=== PATIENT | male | born 2000 | race African-American/Black ===

== ENCOUNTER 2020-05-29 07:59 | Emergency (ER) | payer OTHER ==
[2020-05-29] MEDS ORDERED: ONDANSETRON 4 MG TAB.RAPDIS PO ONE (09:31)
[2020-05-29] MEDS ORDERED: ACETAMINOPHEN 325 MG TABLET PO ONE (09:31)
[2020-05-29] MEDS ORDERED: NAPROXEN 250 MG TABLET PO ONE (09:32)
--- NOTE | 2020-05-29 10:20 | ER Document Report ---
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 He reports x1 episode of emesis last night, but denies any recent episodes. He denies cough, sore throat, loss of smell, or any known COVID exposure. 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 denies: Throat pain Cardiovascular: No symptoms reported Respiratory: See HPI. denies: Cough Gastrointestinal: See HPI, Nausea, Vomiting Genitourinary: No symptoms reported Male Genitourinary: No symptoms reported Musculoskeletal: See HPI, Muscle pain Skin: No symptoms reported Hematologic/Lymphatic: No symptoms reported Neurological/Psychological: See HPI, Headaches -: Yes All other systems reviewed and negative Physical Exam - Vital signs Vitals: Temp Pulse Resp BP Pulse Ox 100.1 F 90 16 145/68 H 98 05/29/20 08:17 05/29/20 08:17 05/29/20 08:17 05/29/20 08:17 05/29/20 08:17 - General General appearance: Alert In distress: None - HEENT Head: Normocephalic, Atraumatic Eyes: Normal Pupils: PERRL Pharynx: Normal Neck: Other - Posterior cervical musculature tenderness to palpation - Respiratory Respiratory status: No respiratory distress Chest status: Nontender Breath sounds: Normal Chest palpation: Normal - Cardiovascular Rhythm: Regular Heart sounds: Normal auscultation Murmur: No Friction rub: No Gallop: None auscultated - Abdominal Inspection: Normal Distension: No distension Bowel sounds: Normal Tenderness: Nontender - Abdomen soft Organomegaly: No organomegaly - Back Back: Normal, Nontender - Extremities General upper extremity: Normal inspection General lower extremity: Normal inspection - Neurological Neuro grossly intact: Yes - Psychological Associated symptoms: Normal affect, Normal mood - Skin Skin Temperature: Warm Skin Moisture: Dry Skin Color: Normal Course - Re-evaluation Re-evalutation: 05/29/20 11:25 The patient was evaluated during the global COVID-19 pandemic and that diagnosis was suspected/considered upon their initial presentation. Their evaluation, treatment and testing was consistent with current guidelines for patients who present with complaints or symptoms that may be related to COVID-19. Patient feels much better after the Zofran, Tylenol and Naprosyn. Nauseousness is gone and headache is gone. - Vital Signs Vital signs: Temp Pulse Resp BP Pulse Ox 100.1 F 90 16 145/68 H 98 05/29/20 08:17 05/29/20 08:17 05/29/20 08:17 05/29/20 08:17 05/29/20 08:17 Discharge - Discharge Clinical Impression: Viral syndrome, Encounter for laboratory testing for COVID-19 virus Fever Qualifiers: Fever type: unspecified Qualified Code(s): R50.9 - Fever, unspecified Nausea & vomiting Qualifiers: Vomiting type: unspecified Vomiting Intractability: non-intractable Qualified Code(s): R11.2 - Nausea with vomiting, unspecified Headache Qualifiers: Headache type: tension-type Headache chronicity pattern: unspecified pattern Intractability: not intractable Qualified Code(s): G44.209 - Tension-type headache, unspecified, not intractable Condition: Stable Disposition: HOME, SELF-CARE Instructions: COVID-19 Guidance for Persons Under Investigation Additional Instructions: Viral Syndrome The physician has diagnosed a viral infection. Viruses not only cause "colds," but can cause many different symptoms including generalized aching, fever, headache, cough, diarrhea, nausea, vomiting, and fatigue. The treatment, for the most part, is simply relief of symptoms. This means that antibiotics are usually not given. Rest, fluids, pain medications and, occasionally, medication for the specific symptoms that are most bothersome will be prescribed. Use good handwashing to avoid passing the virus to others. Shared toys should be cleaned with disinfectant. Clean the toilets, sinks, and counter surfaces in bathrooms. Launder clothing in hot water. Contact the physician if you develop any new or unusual symptoms such as severe headache, stiff neck, high fever, chest pain, productive cough, or shortness of breath. You should be rechecked if you don't see marked improvemen t within seven to 10 days. Take the Zofran as prescribed for nausea if needed. Take Tylenol and Aleve for headache and fever as needed. Drink plenty of fluids and get plenty of rest. Self isolate until you get the results of the COVID test. RETURN TO THE EMERGENCY ROOM IF ANY NEW OR WORSENING SYMPTOMS. Prescriptions: Ondansetron [Zofran Odt 4 mg Tablet] 1 - 2 tab PO Q4H PRN #14 tab.rapdis PRN Reason: I personally performed the services described in the documentation, reviewed and edited the documentation which was dictated to the scribe in my presence, and it accurately records my words and actions.
[2020-05-29 10:51] LABS: APPEARANCE,URINE CLEAR; BILIRUBIN,URINE NEGATIVE (NEGATIVE); COLOR,URINE YELLOW; GLUCOSE, URINE NEGATIVE (NEGATIVE); KETONES,URINE NEGATIVE (NEGATIVE); LEUKOCYTE ESTERASE,URINE NEGATIVE (NEGATIVE); NITRITE,URINE NEGATIVE (NEGATIVE); PROTEIN,URINE NEGATIVE (NEGATIVE); URINE SPECIFIC GRAVITY 1.015; UROBILINOGEN,URINE NEGATIVE mg/dL (<2.0)
[2020-05-29 11:48] VITALS: BP 131/66
== END 2020-05-29 11:36 | disposition home or self-care (01) ==
LOC: ER 07:59
DX: G44.209 Tension-type headache, unspecified, not intractable (principal); B34.9 Viral infection, unspecified; R11.2 Nausea with vomiting, unspecified; R50.9 Fever, unspecified; Z20.828 Contact with and (suspected) exposure to other viral communicable diseases
CPT/HCPCS: 99283; 87635; 81001; S0119; C9803

== ENCOUNTER 2020-08-07 23:50 | Emergency (ER) | payer OTHER ==
--- NOTE | 2020-08-08 01:02 | ER Document Report ---
ED Psych Disorder / Suicide - General Mode of Arrival: Wheelchair Information source: Friend TRAVEL OUTSIDE OF THE [place] IN LAST 30 DAYS: No <NGUYEN HAINES JR - Last Filed: 08/08/20 01:33> <RA TREJO - Last Filed: 08/08/20 15:48> <JENN TOBAR - Last Filed: 08/08/20 15:51> - General Chief Complaint: Overdose Stated Complaint: POSSIBLE OVERDOSE Time Seen by Provider: 08/08/20 00:57 Primary Care Provider: ELSA OMER [NO LOCAL MD] - Follow up as needed Notes: 20-year-old black male arrives by POV with his friend Adam who is trackless trolley driver patient called him to alert him that he had taken 3 oxycodone 7 ibuprofen 2 lithium tablets several Tylenol tablets extra strength over the last 2 days in a suicide attempt. Patient very lethargic at this time but does know who he is and where he is at. Patient denies any prior history of overdose or suicidal ideation. (NGUYEN HAINES JR) - Related Data Allergies/Adverse Reactions: No Known Allergies Allergy (Unverified 05/29/20 09:43) Past Medical History - General Information source: Patient, Friend - Social History Smoking Status: Unknown if Ever Smoked Cigarette use (# per day): No Chew tobacco use (# tins/day): No Smoking Education Provided: No Frequency of alcohol use: Occasional Drug Abuse: Prescription drugs Family History: Reviewed & Not Pertinent Patient has suicidal ideation: No Patient has homicidal ideation: No <NGUYEN HAINES JR - Last Filed: 08/08/20 01:33> Review of Systems - Review of Systems Constitutional: See HPI, Weakness EENT: No symptoms reported Cardiovascular: No symptoms reported Respiratory: No symptoms reported Gastrointestinal: No symptoms reported Genitourinary: No symptoms reported Male Genitourinary: No symptoms reported Musculoskeletal: No symptoms reported Skin: No symptoms reported Hematologic/Lymphatic: No symptoms reported Neurological/Psychological: See HPI, Confusion, Weakness, Suicidal ideation <NGUYEN HAINES JR - Last Filed: 08/08/20 01:33> Physical Exam - Vital signs Interpretation: Normal - General General appearance: Appears well, Alert - HEENT Head: Normocephalic, Atraumatic Eyes: Normal Pupils: PERRL - Respiratory Respiratory status: No respiratory distress Chest status: Nontender Breath sounds: Normal Chest palpation: Normal - Cardiovascular Rhythm: Regular Heart sounds: Normal auscultation Murmur: No - Abdominal Inspection: Normal Distension: No distension Bowel sounds: Normal Tenderness: Nontender Organomegaly: No organomegaly - Rectal Prostate: Other - Deferred - Genitourinary Scrotum: Other - deferred - Back Back: Normal, Nontender - Extremities General upper extremity: Normal inspection, Nontender, Normal color, Normal ROM, Normal temperature General lower extremity: Normal inspection, Nontender, Normal color, Normal ROM, Normal temperature, Normal weight bearing. No: Abraham's sign - Neurological Neuro grossly intact: Yes Cognition: Normal Orientation: AAOx4 [place] Coma Scale Eye Opening: Spontaneous [place] Coma Scale Verbal: Oriented [place] Coma Scale Motor: Obeys Commands [place] Coma Scale Total: 15 Speech: Normal Motor strength normal: LUE, RUE, LLE, RLE Sensory: Normal - Psychological Associated symptoms: Flat affect - Skin Skin Temperature: Warm Skin Moisture: Dry Skin Color: Normal <NGUYEN HAINES JR - Last Filed: 08/08/20 01:33> - Vital signs Vitals: Resp Pulse Ox 17 100 08/08/20 00:45 08/08/20 00:45 Course - Laboratory Result Diagrams: 08/08/20 00:20 08/08/20 00:20 - EKG Interpretation by Me EKG shows normal: Sinus rhythm Rate: Normal Rhythm: NSR - [address] elevation no ST depression no T wave elevation no T wave depression and this EKG was read by myself and I agree with the EKG interpretation as well. <NGUYEN HAINES JR - Last Filed: 08/08/20 01:33> - Laboratory Result Diagrams: 08/08/20 00:20 08/08/20 00:20 <RA TREJO - Last Filed: 08/08/20 15:48> - Laboratory Result Diagrams: 08/08/20 00:20 08/08/20 00:20 <JENN TOBAR - Last Filed: 08/08/20 15:51> - Vital Signs Vital signs: Temp Pulse Resp BP Pulse Ox 98 F 14 113/60 100 08/08/20 12:53 08/08/20 15:01 08/08/20 15:01 08/08/20 15:01 - Laboratory Laboratory results interpreted by me: 08/08/20 08/08/20 08/08/20 00:20 00:20 00:20 Lymph % (Auto) 11.0 L Absolute Neuts (auto) 8.5 H Seg Neutrophils % 80.7 H Carbonic Acid ABG pCO2 ABG HCO3 ABG Total CO2 Glucose 113 H Urine Protein Urine Ketones Urine Urobilinogen Salicylates < 1.0 L Acetaminophen < 10 L [place] < 0.2 L 08/08/20 08/08/20 01:15 01:40 Lymph % (Auto) Absolute Neuts (auto) Seg Neutrophils % Carbonic Acid 1.38 H ABG pCO2 45.9 H ABG HCO3 26.3 H ABG Total CO2 27.7 H Glucose Urine Protein 100 H Urine Ketones TRACE H Urine Urobilinogen 4.0 H Salicylates Acetaminophen [place] Discharge <NGUYEN HAINES JR - Last Filed: 08/08/20 01:33> <RA TREJO - Last Filed: 08/08/20 15:48> <JENN TOBAR - Last Filed: 08/08/20 15:51> - Discharge Clinical Impression: Overdose Qualifiers: Encounter type: initial encounter Injury intent: intentional self-harm Qualified Code(s): T50.902A - Poisoning by unspecified drugs, medicaments and biological substances, intentional self-harm, initial encounter Suicidal overdose Qualifiers: Encounter type: initial encounter Qualified Code(s): T50.902A - Poisoning by unspecified drugs, medicaments and biological substances, intentional self-harm, initial encounter Condition: Fair Disposition: HOME, SELF-CARE Additional Instructions: You have been evaluated by both medical and behavioral health teams for suicidal ideations and overdose. You have been deemed appropriate for discharge. While in the emergency department you received the following services/or had access to: Medical screening and assessment, nursing services, dietary services, pharmacological services, one-on-one counseling and/or psychotherapy, environmental services, and continuous observation by a patient campus safety officer. You should are currently not involved in medication management. Suicidal Ideation Suicidal ideation is a common medical term for thoughts about suicide, which may be as detailed as a formulated plan, without the suicidal act itself. Although most people who undergo suicidal ideation do not commit suicide, some go on to make suicide attempts. The range of suicidal ideation varies grea tly from fleeting to detailed planning, role playing, and unsuccessful attempts. While thoughts about suicide are common, most people do not carry out serious actions to commit suicide. However, based upon your evaluation and discussion with you, we believe you are currently not at risk to act upon your thoughts of suicide. Therefore, you will be discharged to your chain of command. Follow up care: You are currently involved in outpatient therapy with Sofia at [facility]. This is new and you met twice this week on the phone and have a scheduled appointment next week. You are recommended to continue outpatient therapy to process stressors and learn appropriate and healthy coping skills. Your [facility] command is assuming care and you agreed to follow up, today, with 4A/ ED assessment at [facility] and will be transported by your OIC, present at bedside. You have signed an Authorization for release of health information form allowing us permission to fax your [facility] referral packet to at [facility] to begin the process of your voluntary admission. You agree to be transported by your OIC and go to for further psychiatric care/ assessment. Your chain of command has noted plan to obtain a barracks room for you as it is recommended to not go home at this time. This will also allow your chain of command chances to check in on your wellbeing and safety until they feel you are no longer a high risk. Dr. Sal was consulted to care management of this patient; attending physicians in agreement with recommendations and disposition.
[2020-08-08 01:20] LABS: ABSOLUTE LYMPHOCYTES (AUTO) 1.2 10^3/uL (0.5-4.7); ABSOLUTE MONOCYTES (AUTO) 0.8 10^3/uL (0.1-1.4); ABSOLUTE NEUT (AUTO) 8.5 10^3/uL (1.7-8.2); BASOPHILS % (AUTO) 0.4 % (0-2); EOSINOPHILS % (AUTO) 0.3 % (0-6); MEAN CORPUSCULAR HEMOGLOBIN 31.2 pg (27.0-33.4); MEAN CORPUSCULAR HGB CONC 34.1 g/dL (32.0-36.0); MEAN CORPUSCULAR VOLUME 92 fl (80-97); MONOCYTES % (AUTO) 7.6 % (3-13); PLATELET COUNT 266 10^3/uL (150-450); RED BLOOD COUNT 4.48 10^6/uL (4.35-5.55); RED CELL DISTRIBUTION WIDTH 12.9 % (11.5-14.0); SEGMENTED NEUTROPHILS % (AUTO) 80.7 % (42-78); TOTAL CELLS COUNTED % (AUTO) 100 %; WHITE BLOOD COUNT 10.5 10^3/uL (4.0-10.5)
[2020-08-08 01:24] LABS: ACETAMINOPHEN < 10 ug/mL (10-30); ALBUMIN 4.8 g/dL (3.5-5.0); ALCOHOL < 10 mg/dL (NONE DETECTED); ALKALINE PHOSPHATASE 66 U/L (38-126); ANION GAP 12 (5-19); ASPARTATE AMINO TRANSFERASE 38 U/L (17-59); BILIRUBIN,DIRECT 0.2 mg/dL (0.0-0.4); BILIRUBIN,TOTAL 0.8 mg/dL (0.2-1.3); BLOOD UREA NITROGEN 12 mg/dL (7-20); CALCIUM 10.1 mg/dL (8.4-10.2); CARBON DIOXIDE 27 mmol/L (22-30); CHLORIDE 103 mmol/L (98-107); GLUCOSE 113 mg/dL (75-110); POTASSIUM 4.2 mmol/L (3.6-5.0); SALICYLATE < 1.0 mg/dL (2.0-20.0); TOTAL PROTEIN 8.1 g/dL (6.3-8.2)
[2020-08-08 01:52] LABS: ARTERIAL BLOOD BASE EXCESS 0.6 mmol/L; ARTERIAL BLOOD H2CO3 1.38 mmol/L (1.05-1.35); ARTERIAL BLOOD HCO3 26.3 mmol/L (20-24); ARTERIAL BLOOD O2 SATURATION 96.7 % (94-98); ARTERIAL BLOOD PCO2 45.9 mmHg (35-45); ARTERIAL BLOOD PH 7.38 (7.35-7.45); ARTERIAL BLOOD PO2 90.3 mmHg (80-100); ARTERIAL BLOOD TOTAL CO2 27.7 mmol/L (23-27)
[2020-08-08 01:54] LABS: ARTERIAL BLOOD FIO2 ROOM AIR
[2020-08-08 02:09] LABS: APPEARANCE,URINE SLIGHTLY-CLOUDY; BILIRUBIN,URINE NEGATIVE (NEGATIVE); COLOR,URINE YELLOW; GLUCOSE, URINE NEGATIVE (NEGATIVE); KETONES,URINE TRACE mg/dL (NEGATIVE); LEUKOCYTE ESTERASE,URINE NEGATIVE (NEGATIVE); NITRITE,URINE NEGATIVE (NEGATIVE); PROTEIN,URINE 100 mg/dL (NEGATIVE); URINE SPECIFIC GRAVITY 1.031
[2020-08-08 02:21] LABS: URINE AMPHETAMINES SCREEN NEGATIVE; URINE BARBITURATES SCREEN NEGATIVE; URINE BENZODIAZEPINES SCREEN NEGATIVE; URINE COCAINE SCREEN NEGATIVE; URINE METHADONE SCREEN NEGATIVE; URINE PHENCYCLIDINE SCREEN NEGATIVE
[2020-08-08 02:22] LABS: URINE MARIJUANA (THC) SCREEN UNCONFIRMED POSITIVE
--- NOTE | 2020-08-08 09:16 | EKG REPORT ---
SEVERITY:- NORMAL ECG - SINUS RHYTHM : Confirmed by: Manpreet Lopez MD 08-Aug-2020 09:16:14
--- NOTE | 2020-08-08 12:47 | ER Document Report ---
Doctor's Note Notes: 08/08/20 12:43 S: Patient turned over to me pending behavioral health assessment. Apparently the patient took on Wednesday night seven Tylenol, 2-3 oxycodones, two lithium's, and seven ibuprofen in an attempt to kill himself. He states that he has been struggling with depression for several months now. He had just started to see a counselor but is not on any psychotropic medications himself. He states his lithium belonged to a friend's . He states that last night he decided to use marijuana to get high to try "to see if that would make me happy". After he did this he called his command and advised them of what had happened. He was brought here to the emergency department. This put on IVC hold until the [facility] team could see him. O: PHYSICAL EXAMINATION: GENERAL: Well-appearing, well-nourished and in no acute distress. HEAD: Atraumatic, normocephalic. EYES: Pupils equal round and reactive to light, extraocular movements intact, sclera anicteric, conjunctiva are normal. NECK: Normal range of motion, supple without lymphadenopathy LUNGS: Breath sounds clear to auscultation bilaterally and equal. No wheezes rales or rhonchi. HEART: Regular rate and rhythm without murmurs NEUROLOGICAL: No focal neurological deficits. Moves all extremities spontaneously and on command. PSYCH: Admits to feeling depressed and having active suicidal ideation. Attempted to commit suicide over the past week. No SI, HI. he has poor eye contact and is withdrawn SKIN: Warm, Dry, normal turgor, no rashes or lesions noted. A/P: Spoke with the behavioral health team who has assessed the patient. The patient has contracted for safety and his [facility] is here with him. The plan is to discharge him from the emergency department and have him go to [facility] for further care. I discussed this plan with the patient and he agrees with the plan. Will await this plan to be solidified and then we will move forward. 08/08/20 15:49 After much [id number] with the base, a plan has been made to discharge the patient and [place] evaluate him further for need to go to [facility]. He does not currently meet IVC criteria. He is denying current suicidal ideation and would like to follow through on a plan to get help with his depression.
--- NOTE | 2020-08-08 13:31 | PSYCHOLOGICAL NOTE ---
Psych Note - Psych Note Date seen by psych provider: 08/08/20 Time seen by psych provider: 10:35 Psych Note: [id number] Reason for Consult: suicidal ideation, overdose, panic attack Consent Permissions: patient gave verbal consent to speak to: [facility] Sgt, first name Hernandez; OI, first name Casa Patient is a 20 year old male who presented to the [facility] ED today voluntarily for a panic attack. Patient reports overdosing on Wednesday evening on multiple pills to include taking 3 oxy, 7 ibuprofen, 2 Dish, and several Tylenol tablets extra strength. Patient reports going to work the following two days after the overdose took place. Patient reports stressors in his life to include ongoing marriage issues and new issues as he was in the field 3 weeks ago and his had a male friend over. He reports he trusts her, but wouldnt let it go and now wants to separate. Patient reports Wednesday evening him and his got into an argument and he took these pills. Patient states he went into work Wednesday and disclosed to his chain of command marital issues and feeling suicidal and that he took the pills. Patients chain of command set up a phone call therapy session with Sofia at [facility]. He reports meeting with her twice this week and has an appointment scheduled for next week to continue therapy and start possible marriage counseling. Patient reports he was supposed to be staying with a friend and later went home on Wednesday (08.07.2020) where his wi fe was at. He states while driving in the car with his , he started panicking and cannot remember what happened after that. He reports being dropped off at his friends house by his and then ended up in the ED. At this time he states he used marijuana around 2502-0160 on 08.07.2020 and took 3 puffs. Patient denies any other substance use to include over the counter medications. During time of assessment, patient admits to taking pills in attempt to end his life. He reports no mental health history to include suicide attempts, psychiatric medications, or outpatient services. Patient states he is not currently feeling suicidal and has no plan or intent. He denies access to firearms. Patient provided verbal consent for clinician to speak to his chain of command present and share what was stated earlier as well as discuss plan of care with them in the room. Sgt Hernandez from [employer] reports patient has been a good [employer] without any behavior issues at work. He states until early this week he was not aware of patients marriage issues in the home or mental health concerns. He states he was told on Wednesday morning he attempted suicide and was set up with Sofia at [facility] for a phone therapy session. Hernandez reports stressors to include arguing with his and having a recent false that has upset patient as well. He reports tentative plan in place when patient is discharged is to try and [place] and be monitored and evaluated further for safety and get him a barracks room to stay at as going home is not a healthy option. He also notes patients is a drug user and their house was recently broken into and law enforcement found drugs in the home. Casa, [facility], from [facility]: Casa states patient showed up at work Wednesday depressed and crying and reported marriage issues. Casa states at this time patient did not disclose his suicide attempt. He reports patient was asked about plans to end his life and patient stated, Well, I guess probably take a bunch of pills. Casa reports patient denied access to pills and firearms in his home at this time. He reports ongoing safety concerns related to patients honesty to his chain of command and the medical/ mental health team. He states patient will get a barracks room, however his barracks duty, has a place of duty, and cannot keep constant supervision on patient. He reports patient did not have a friend to stay with who left yesterday for [place]. He reports his duty can check on patient every 4 hours, but he does not feel safe with this being the only option. He feels safer having patient admitted to for further psychiatric evaluation. He reports knowing what patient took as an overdose attempt and being aware, now, of the marijuana use. He reports patient did have a 6 mile hike with full pack on Wednesday, in case that added to any irregular blood work. Patient was alert and oriented to self, person, place, and time. He was oriented to situation, but did note memory lapses. Mood was depressed with congruent affect. He denied current homicidal ideations. He denies suicidal ideation, plan, and intent. Patient did not appear to be responding to internal stimuli as evidenced by fair eye contact and answering questions appropriately when addressed. Thought processes disorganized as his memory lapses do not allow for a very clear timeline of events leading to ED hospitalization. Conversational speech was within normal limits for rate, tone and prosody. Intellectual abilities are estimated to be average. Attention and concentration are fair. Insight was fair evidenced by talking to his chain of command about stressors, but judgment and impulse control were poor as evidenced by smoking marijuana and taking pills in attempt to overdose without trying to talk to someone first. Patient demonstrated future forward goal oriented thinking as he discussed upcoming therapy and possible marriage counseling. Clinical Presentation: suicidal ideation, overdose; denies current plan or intent; anxious IVC Criteria per [facility] 122C Dangerous to others Within the relevant past the individual No has inflicted or attempted to inflict or threatened to inflict serious bodily harm on another AND No that there is a reasonable probability that this conduct will be repeated. OR No has acted in such a way as to create a substantial risk of serious bodily harm to another AND No that there is a reasonable probability that this conduct will be repeated. OR No has engaged in extreme destruction of property AND NO that there is a reasonable probability that this conduct will be repeated. Previous episodes of dangerousness to others, when applicable, may be considered when determining reasonable probability of future dangerous conduct. Clear, cogent, and convincing evidence that an individual has committed a homicide in the relevant past is prima facie evidence of dangerousness to others. Dangerous to self Within the relevant past the individual has done any of the following: acted in such a way as to show ALL of the following: No The individual would be unable without care, supervision, and the continued assistance of others not otherwise available, to exercise self- control, judgment, and discretion in the conduct of the individual's daily responsibilities and social relations or to satisfy the individual's need for nourishment, personal or medical care, detention, or self-protection and safety. AND No There is a reasonable probability of the individual suffering serious physical debilitation within the near future unless adequate treatment is given. A showing of behavior that is grossly irrational, of actions that the individual is unable to control, of behavior that is grossly inappropriate to the situation, or of other evidence of severely impaired insight and judgment shall create a prima facie inference that the individual is unable to care for himself or herself. OR Yes has attempted suicide or threatened suicide Patient did attempt suicide on Wednesday evening via overdose AND No that there is a reasonable probability of suicide unless adequate treatment is given This was his first attempt; chain of command is involved to help keep patient safe, therapy is set up for next week, plans to go to voluntarily, and denies current plan and intent OR No has mutilated himself or herself or attempted to mutilate himself or herself AND No that there is a reasonable probability of serious self-mutilation unless adequate treatment is given. NOTE: Previous episodes of dangerousness to self, when applicable, may be considered when determining reasonable probability of physical debilitation, suicide, or self-mutilation. Impression\plan: Patient is cleared from acute psychiatric services. Patients [facility] command is assuming care and patient agrees to follow up, today, with a plan to follow up [place] in the ED for another psychiatric assessment to see if he meets criteria for admission. Patient will be transported by his OIC, present at bedside. Patient was admitted to the ED following an ov erdose 2 days prior and after having a panic attack during an argument with his , yesterday. He reports multiple stressors at home with his and states he was feeling overwhelmed. Patient denies current suicidal ideation, plan, and intent. Patient has no past psychiatric history. Patient signed an Authorization for release of health information form to send his referral packet to at [facility]. Patient agrees to be transported by his OIC and go to for further psychiatric care/ assessment. Patients reported going to and getting patient a barracks room was a plan being put in place where barracks duty can periodically check on patient, due to current family/ home stressors. Patients OIC confirms taking patient to the ED/ on [place] [facility] upon discharge for another psychiatric assessment is the next step and getting him a barracks room will follow as going home is not a good option at this time. His OIC reports barracks duty has a post to assume, but can likely check on patient every 4 hours, approximately. Patient has established outpatient therapy with [facility] and has a follow up appointment next week. Patient has appropriate plans of supervision in place and has been verified by his chain of command. It is recommended patient obtain a barracks room for the time being and continue outpatient therapy to process stressors and learn appropriate and healthy coping skills. If symptoms worsen, patient can return to the ED. Patient was given community referral list of [facility] and [facility] mobile crisis numbers as well as the [facility] suicide hot[facility] crisis number. Patient and OIC note an upcoming therapy session next week with oSfia at [facility]. It is recommended that patient be supervised, at a minimum, for the next 24 hours and also recommended he does not go back home at this time. Dr. Sal and the 4A physician on duty spoke from [id number] and the on duty physician is in agreement with plan of care. Physician on duty supported the plan in place and recommends patient to return to the ED if symptoms worsen. If patient's chain of command feels strongly that patient is unsafe, [place]. Patient's chain of command does report safety concerns at this time, however safety plans are in place. Dr. Sal was consulted to care management of this patient; attending physicians in agreement with recommendations and disposition.
[2020-08-08 16:13] VITALS: BP 110/62
== END 2020-08-08 16:19 | disposition home or self-care (01) ==
LOC: ER 23:50
DX: T39.1X2A Poisoning by 4-Aminophenol derivatives, intentional self-harm, initial encounter (principal); T39.312A Poisoning by propionic acid derivatives, intentional self-harm, initial encounter; T40.2X2A Poisoning by other opioids, intentional self-harm, initial encounter; T56.892A Toxic effect of other metals, intentional self-harm, initial encounter; R53.83 Other fatigue; R41.0 Disorientation, unspecified; R53.1 Weakness; F32.9 Major depressive disorder, single episode, unspecified; Z63.5 Disruption of family by separation and divorce
CPT/HCPCS: 36415; 36600; 80053; 80178; 80307; 81001; 82803; 85025; 93005; 93010; 99285